=== PATIENT | female | born 2000 | race Caucasian/White ===

== ENCOUNTER 2023-12-31 22:14 | Emergency (ER) | payer OTHER ==
[~2023-12-31] VITALS: Ht 157.5 cm; Wt 45.4 kg
[2023-12-31 23:31] LABS: APPEARANCE,URINE CLEAR (CLEAR); BILIRUBIN,URINE NEGATIVE (NEGATIVE); BLOOD, URINE 3+ Ery/uL (NEGATIVE); COLOR,URINE YELLOW (YELLOW); KETONES,URINE NEGATIVE (NEGATIVE); LEUKOCYTE ESTERASE ,URINE 1+ (NEGATIVE); NITRITE, URINE NEGATIVE (NEGATIVE); PROTEIN,URINE NEGATIVE (NEGATIVE); UGLUCOSE NEGATIVE (NEGATIVE); UROBILINOGEN,URINE 0.2 EU/dL (0.2)
[2023-12-31 23:33] LABS: PREGNANCY TEST URINE QUAL NEGATIVE (NEGATIVE)
[2023-12-31] MEDS ORDERED: IBUP-1953 PO (23:41)
[2023-12-31] MEDS ORDERED: CEPH500T PO (23:41)
[2023-12-31 23:45] VITALS: BP 102/58; TEMP 98.2; O2SAT 100
[2023-12-31 23:45] LABS: ADD URINE CULTURE YES; BACTERIA,URINE 1+ /HPF (None Seen); RBC,URINE 21-50 /HPF (0-2)
== END 2023-12-31 23:45 | disposition home or self-care (01) ==
LOC: ER 22:18
DX: N39.0 Urinary tract infection, site not specified (principal); F41.9 Anxiety disorder, unspecified; F32.A Depression, unspecified; Z32.02 Encounter for pregnancy test, result negative
CPT/HCPCS: 81001; 84703-TC; 87086-TC